=== PATIENT | male | born 1945 | race Caucasian/White ===

== ENCOUNTER 2020-05-28 21:19 | Inpatient (IN) | payer MEDICARE ==
[~2020-05-28] VITALS: Ht 170.2 cm; Wt 69.6 kg
[~2020-05-28 21:19] MED LIST: ASPIRIN CHEWABL81 MG PO; CLARITIN10 MG PO; ESOMEPRAZOLE MA40 MG PO; HYDROCODON-ACE1 EAC6 PO; NORVASC2.5 MG PO; RANITIDINE HCL150 M1 PO; SERTRALINE HCL50 MG PO
[2020-05-28 21:46] LABS: RED BLOOD COUNT 3.84 M/UL (4.20-5.50)
[2020-05-28 22:00] LABS: BUN/CREATININE RATIO 18 (0-10)
[2020-05-29 04:35] LABS: HEMOGLOBIN 12.3 gm/dl (14.0-17.5); RED BLOOD COUNT 3.97 M/UL (4.20-5.50); WHITE BLOOD COUNT 6.2 K/UL (4.5-11.0)
[2020-05-29 05:19] LABS: BUN/CREATININE RATIO 18 (0-10)
[2020-05-29] MEDS ORDERED: PERCOCET 7.5-31 EACH PO (08:57)
[2020-05-29] MEDS ORDERED: ZOFRAN ODT 4 MG4 MG SL (08:57)
[2020-05-29] MEDS ORDERED: VENTOLIN HFA 66.7 GM INH (08:58)
[2020-05-29] MEDS ORDERED: COLCRYS0.6 MG PO (08:59)
--- NOTE | 2020-05-31 04:23 | NUR ---
PATIENT NOTED TO HAVE A BOTTLE OF PRESCRIPTION PAIN PILLS IN HIS ROOM. PATIENT ALLOWED RN TO READ THE BOTTLE. RN READ PATIENT'S NAME ON THE BOTTLE ALONG WITH THE INSTRUCTIONS TO "TAKE 1 TAB BY MOUTH 3 TO 4 TIMES DAILY NEEDED." RN COUNTED 19 OXYCODONE/ACETAMINOPHEN 7.5-325 MG TABS. RN ATTEMPTED TO PERSUADE PATIENT TO ALLOW HER TO SEND MEDICATION TO PHARMACY, BUT PATIENT REFUSED. HE STATED, "YOU'RE NOT TAKING MY PILLS," THEN TOOK THEM WITH HIM TO THE BATHROOM. RN RANG CALL LIGHT AND ASKED FOR CRISPIN REFFNER. CRISPIN CALLED [employer] OPERATOR WHO INSTRUCTED RN TO EXPLAIN HOSPITAL POLICY. RN DID THIS, PATIENT CONTINUED TO REFUSED. PATIENT IS ALERT AND ORIENTED. SKATES OPERATOR INSTRUCTED RN TO LEAVE MEDICATION WITH PATIENT.----MARTINA CROCKETT RN 05/30/202044
[2020-06-01 06:04] LABS: HEMOGLOBIN 11.6 gm/dl (14.0-17.5); RED BLOOD COUNT 3.87 M/UL (4.20-5.50); WHITE BLOOD COUNT 5.4 K/UL (4.5-11.0)
[2020-06-01 06:21] LABS: BUN/CREATININE RATIO 29 (0-10)
[2020-06-02] MEDS ORDERED: DEXAMETHASONE1 MG PO (10:35)
== END 2020-06-02 12:23 | disposition home or self-care (01) | DRG 177 ==
LOC: ER1 21:19 → CDU 23:59 → MED SURG 4 23:59
PROVIDERS: Emergency Medicine; Internal Medicine; ADMIT Internal Medicine
PROC: 8E0ZXY6 Isolation (ICD-10-PCS; 2020-05-28)
PROC: XW033E5 Introduction of Remdesivir Anti-infective into Peripheral Vein, Percutaneous Approach, New Technology Group 5 (ICD-10-PCS; principal; 2020-05-30)
DX: U07.1 COVID-19 (principal); J12.82 Pneumonia due to coronavirus disease 2019; J96.01 Acute respiratory failure with hypoxia; E87.1 Hypo-osmolality and hyponatremia; I10 Essential (primary) hypertension; F32.9 Major depressive disorder, single episode, unspecified; D64.9 Anemia, unspecified; R73.9 Hyperglycemia, unspecified; Z88.7 Allergy status to serum and vaccine; Z79.82 Long term (current) use of aspirin; Z85.89 Personal history of malignant neoplasm of other organs and systems; Z85.46 Personal history of malignant neoplasm of prostate; Z79.899 Other long term (current) drug therapy
CPT/HCPCS: 36415; 71045; 80048; 80053; 81001; 82728; 83605; 83690; 83735; 83880; 84484; 85025; 85610; 85730; 86140; 90471; 93005; 96365; 96366; 96367; 96375; 96376; 99285; J0456; J1100; J1650; J7030; U0002

== ENCOUNTER 2020-06-20 13:56 | Inpatient (IN) | payer MEDICARE ==
[~2020-06-20] VITALS: Ht 170.2 cm; Wt 68.0 kg
[~2020-06-20 13:56] MED LIST changes: +COLCRYS0.6 MG PO; +DEXAMETHASONE1 MG PO; +PERCOCET 7.5-31 EACH PO; +VENTOLIN HFA 66.7 GM INH; +ZOFRAN ODT 4 MG4 MG SL
[2020-06-20 15:34] LABS: HEMOGLOBIN 13.1 gm/dl (14.0-17.5); RED BLOOD COUNT 4.16 M/UL (4.20-5.50); WHITE BLOOD COUNT 14.8 K/UL (4.5-11.0)
[2020-06-20 16:06] LABS: BUN/CREATININE RATIO 13 (0-10)
[2020-06-21 03:51] LABS: HEMOGLOBIN 11.8 gm/dl (14.0-17.5); RED BLOOD COUNT 3.8 M/UL (4.20-5.50); WHITE BLOOD COUNT 11.2 K/UL (4.5-11.0)
[2020-06-21 04:20] LABS: BUN/CREATININE RATIO 17 (0-10)
[2020-06-22 03:38] LABS: HEMOGLOBIN 11.1 gm/dl (14.0-17.5); RED BLOOD COUNT 3.57 M/UL (4.20-5.50); WHITE BLOOD COUNT 11.4 K/UL (4.5-11.0)
[2020-06-22 03:59] LABS: BUN/CREATININE RATIO 17 (0-10)
--- NOTE | 2020-06-23 03:03 | NUR ---
0000-patient called out wanting his pain medication. i explained to patient that he could have his iv morphine but it wasn't quite time for his percocet that it was every 8 hours and he could have it around 330. patient stated that hed just wait that he didnt want the iv morphine.
--- NOTE | 2020-06-23 03:06 | NUR ---
0300-WENT TO ROUND ON PATIENT, HE WAS SITTING ON THE COUCH AND I ASKED HIM IF HE WAS OKAY AND HE STATED THAT IF HE GOES LONGER THAN 6 HOURS WITHOUT HIS PAIN MEDICATION HE GETS TO HURTING REAL BAD IN HIS BACK. I OFFERED HIM HIS MORPHINE ONCE AGAIN AND HE SAID HE DIDN'T LIKE THAT STUFF THAT IT DIDN'T LAST LONG. I NOTIFIED DR ELAM TO SEE IF I COULD GIVE THE PERCOCET EARLY.
[2020-06-23 04:18] LABS: RED BLOOD COUNT 3.88 M/UL (4.20-5.50); WHITE BLOOD COUNT 11.5 K/UL (4.5-11.0)
[2020-06-23 04:34] LABS: BUN/CREATININE RATIO 16 (0-10)
== END 2020-06-23 16:53 | disposition home or self-care (01) | DRG 439 ==
LOC: ER1 13:56 → CDU 19:56 → MED SURG 4 19:56
PROVIDERS: Internal Medicine; Internal Medicine Infectious Disease; Physician Assistant; ADMIT Internal Medicine
PROC: 8E0ZXY6 Isolation (ICD-10-PCS; principal; 2020-06-21)
PROC: 3E02340 Introduction of Influenza Vaccine into Muscle, Percutaneous Approach (ICD-10-PCS; 2020-06-21)
DX: K85.10 Biliary acute pancreatitis without necrosis or infection (principal); N17.9 Acute kidney failure, unspecified; F32.9 Major depressive disorder, single episode, unspecified; F41.9 Anxiety disorder, unspecified; I10 Essential (primary) hypertension; K21.9 Gastro-esophageal reflux disease without esophagitis; Z85.818 Personal history of malignant neoplasm of other sites of lip, oral cavity, and pharynx; Z79.899 Other long term (current) drug therapy; Z79.82 Long term (current) use of aspirin; Z85.46 Personal history of malignant neoplasm of prostate; Z90.79 Acquired absence of other genital organ(s); Z87.891 Personal history of nicotine dependence; Z23 Encounter for immunization
CPT/HCPCS: 36415; 71045; 76705; 80048; 80053; 82150; 82550; 82553; 83690; 83874; 84478; 84484; 85025; 90686; 93005; 96372; 96374; 96375; 96376; 99285; C9113; G0008; J1650; J2270; J2405; J7030; Q9967; U0002

== ENCOUNTER → 2020-08-27 | Outpatient (CLI) | payer MEDICARE | LOC: KOH-I 14:24 | DX: J32.0 Chronic maxillary sinusitis (principal) | CPT/HCPCS: 70486 ==